=== PATIENT | male | born 1995 | race Caucasian/White ===

== ENCOUNTER 2018-06-18 17:51 | Emergency (ER) | END 2018-06-18 20:00 | disposition home or self-care (01) ==

== ENCOUNTER 2018-07-05 18:09 | Emergency (ER) | END 2018-07-05 22:51 | disposition home or self-care (01) ==

== ENCOUNTER 2018-08-20 18:13 | Emergency (ER) | END 2018-08-20 22:42 | disposition home or self-care (01) ==